=== PATIENT | male | born 1975 | race African-American/Black ===

== ENCOUNTER 2023-10-21 19:19 | Emergency (ER) | payer OTHER, SELFPAY ==
[2023-10-21 19:25] VITALS: BP 158/108; PULSE 98; TEMP 36.7; O2SAT 97; BMI 21.6
--- NOTE | 2023-10-21 19:41 | ED.ALCOHOL1 ---
HPI - Alcohol General Chief Complaint: Alcohol Stated Complaint: Clearance for [facility] Time Seen by Provider: 10/21/23 19:32 Source: patient Mode of arrival: Wheelchair Limitations: other Limitations comment: ETOH on board History of Present Illness HPI narrative: This 48-year-old male was brought to the emergency department from [facility] for evaluation of alcohol intoxication. He presented today for alcohol detox but prior to going inside to do his intake he drank an excessive amount of vodka. According to the center, he needs IV fluids and medical clearance. The patient is awake alert, oriented to person and place. He denies that he is suicidal. He states he was just drinking because he knows that this is the last time he is going to be able to drink. He denies any chest pain or shortness of breath. He denies any recent injury or falls. He states he just wants to sleep. MD complaint: Reports alcohol intoxication Related Data Home Medications ?Medication ?Instructions ?Recorded ?Confirmed No Known Home Medications 10/21/23 10/21/23 Allergies Allergy/AdvReac Type Severity Reaction Status Date / Time No Known Drug Allergies Allergy Verified 10/21/23 19:24 Review of Systems ROS Status of ROS 10 or more systems reviewed and unremarkable except as noted in history and below Exam Narrative Exam Narrative: Nurses note and vital signs reviewed and patient is not hypoxic.Blood pressure is elevated 150/108 General: Nontoxic, intoxicated -[place]ian male, no respiratory distress, no active vomiting Skin: Warm, dry, no pallor noted. There is no rash noted. Head: Normocephalic, atraumatic Eye: Normal conjunctiva, no drainage, EOMI. PERRL. No scleral icterus. Ears, Nose, Mouth, and Throat: oral mucosa is moist. Nares patent. Cardiovascular: Regular Rate and Rhythm S1S2, no murmurs, rubs or gallops, pulses are brisk and equal bilaterally Respiratory: Patient is in no distress, no accessory muscle use, lungs are clear to auscultation, no wheezing, rales or rhonchi Back: non-tender, no CVA tenderness bilaterally to percussion. GI: Normal bowel sounds, no tenderness to palpation, no masses appreciated. No rebound, guarding, or rigidity noted. Musculoskeletal: The patient has no sign of injury, moving all extremities and ambulatory to room 1 Neurological: A&O, intoxicated, no focal deficits Psychiatric: Cooperative Constitutional Vital Signs, click to edit/add: Last Vital Signs Temp 98.1 F 10/21/23 19:25 Pulse 85 10/22/23 01:23 Resp 16 10/21/23 22:53 BP 148/101 H 10/22/23 01:23 Pulse Ox 100 10/22/23 01:23 O2 Del Method Room Air 10/21/23 19:25 Course Vital Signs Vital signs: Vital Signs Temperature 98.1 F 10/21/23 19:25 Pulse Rate 98 H 10/21/23 19:25 Respiratory Rate 14 10/21/23 19:25 Blood Pressure 158/108 H 10/21/23 19:25 Pulse Oximetry 97 10/21/23 19:25 Oxygen Delivery Method Room Air 10/21/23 19:25 Temperature 98.1 F 10/21/23 19:25 Pulse Rate 85 10/22/23 01:23 Respiratory Rate 16 10/21/23 22:53 Blood Pressure 148/101 H 10/22/23 01:23 Pulse Oximetry 100 10/22/23 01:23 Oxygen Delivery Method Room Air 10/21/23 19:25 MDM - Alcohol MDM Narrative Medical decision making narrative: This 48-year-old male was sent to the emergency department from [facility] after he showed up today for his intake and was found to be intoxicated. He admits that he was drinking prior to going into the rehab facility. Upon arrival he was awake, alert, mildly slurred speech but otherwise neurologically intact. An IV was placed and he was medicated with IV fluids and given food and drinks including Gatorade. Routine labs were ordered. He does have elevated AT 496 upon arrival. The remainder of his labs are normal. He has slept and awakened and been ambulatory in the emergency department. There are no sign of acute alcohol withdrawal. At this time I feel it is safe for him to be returned to the rehab facility. He is in agreement with this plan. Lab Data Labs: Lab Results 10/21/23 10/21/23 Range/Units 19:42 19:46 WBC 3.2 L (4.0-11.0) 10^3/uL RBC 4.80 (4.70-6.10) 10^6/uL Hgb 10.4 L (14.0-18.0) g/dL Hct 32.4 L (42.0-54.0) % MCV 67.5 L (80.0-94.0) fL MCH 21.7 L (25.9-34.0) pg MCHC 32.1 (29.9-35.2) g/dL RDW 20.6 H (11.0-15.0) % Plt Count 132 L (150-450) 10^3/uL MPV 0.0 L (9.5-13.5) fL Neut % (Auto) 55.2 (43.0-75.0) % Lymph % (Auto) 32.9 (20.5-60.0) % [place] % (Auto) 10.1 (1.7-12.0) % Eos % (Auto) 0.9 (0.9-7.0) % Baso % (Auto) 0.9 (0.2-2.0) % Neut # (Auto) 1.7 (1.4-6.5) 10^3/uL Lymph # (Auto) 1.0 L (1.2-3.8) 10^3/uL [place] # (Auto) 0.3 (0.3-0.8) 10^3/uL Eos # (Auto) 0.0 (0.0-0.7) 10^3/uL Baso # (Auto) 0.0 (0.0-0.1) 10^3/uL Abs Immat Gran (auto) 0.00 (0.00-0.03) 10^3/uL Imm/Tot Granulo (auto) 0.0 (0.0-0.5) % PT 10.1 (9.0-11.6) sec INR 0.95 Sodium 140 (136-145) mmol/L Potassium 4.2 (3.5-5.1) mmol/L Chloride 101 (98-107) mmol/L Carbon Dioxide 29.1 (21.0-32.0) mmol/L Anion Gap 14.1 BUN 11.0 (7.0-18.0) mg/dL Creatinine 1.11 (0.70-1.30) mg/dL Est GFR ( Amer) >60 (>=60) Est GFR (Non-Af Amer) >60 (>=60) BUN/Creatinine Ratio 9.9 Glucose 93 (74-106) mg/dL Calcium 8.6 (8.5-10.1) mg/dL Phosphorus 4.0 (2.6-4.7) mg/dL Magnesium 2.2 (1.8-2.4) mg/dL Total Bilirubin 0.8 (0.2-1.0) mg/dL AST 151 H (15-37) U/L ALT 59 (16-63) U/L Alkaline Phosphatase 65 (46-116) U/L Total Protein 8.1 (6.4-8.2) g/dL Albumin 3.7 (3.4-5.0) g/dL Globulin 4.4 g/dL Albumin/Globulin Ratio 0.8 Lipase 65.0 (16.0-77.0) U/L Ethanol Quant 496 mg/dL POC Glucose 105 (74-106) mg/dL Discharge Plan Discharge Stand Alone Forms: Portal Instructions Chief Complaint: Alcohol Clinical Impression: Alcoholic intoxication Patient Disposition: Home, Self-Care Time of Disposition Decision: 01:36 Condition: Good Prescriptions / Home Meds: No Action No Known Home Medications Print Language: Slovak Instructions: Alcohol Intoxication (ED), Abuse of Alcohol (ED) Referrals: Physician,Non-Staff, MD [Primary Care Provider] - 1 week
[2023-10-21 19:45] LABS: Glucometer 105 mg/dL (74-106)
[2023-10-21] MEDS: 0.9 % SODIUM CHLORIDE 1,000 ML 1000 ML IV (19:46)
[2023-10-21 19:55] LABS: Basophils Percent Auto 0.9 % (0.2-2.0); Eosinophils Percent Auto 0.9 % (0.9-7.0); Hematocrit 32.4 % (42.0-54.0); Hemoglobin 10.4 g/dL (14.0-18.0); Lymphocytes Percent Auto 32.9 % (20.5-60.0); Mean Corpuscular HGB Conc 32.1 g/dL (29.9-35.2); Mean Corpuscular Hemoglobin 21.7 pg (25.9-34.0); Mean Corpuscular Volume 67.5 fL (80.0-94.0); Monocytes Absolute Auto 0.3 10^3/uL (0.3-0.8); Monocytes Percent Auto 10.1 % (1.7-12.0); Neutrophils Absolute Auto 1.7 10^3/uL (1.4-6.5); Neutrophils Percent Auto 55.2 % (43.0-75.0); Platelet Count 132 10^3/uL (150-450); Red Cell Distribution Width 20.6 % (11.0-15.0); White Blood Count 3.2 10^3/uL (4.0-11.0)
[2023-10-21 20:08] LABS: INR 0.95; Prothrombin Time 10.1 sec (9.0-11.6)
[2023-10-21 20:10] LABS: Anion Gap 14.1
[2023-10-21 20:12] LABS: Alanine Aminotransferase 59 U/L (16-63); Albumin Globulin Ratio 0.8; Albumin Level 3.7 g/dL (3.4-5.0); Alkaline Phosphatase 65 U/L (46-116); Aspartate Amino Transferase 151 U/L (15-37); BUN Creatinine Ratio 9.9; Bilirubin Total 0.8 mg/dL (0.2-1.0); Calcium 8.6 mg/dL (8.5-10.1); Carbon Dioxide 29.1 mmol/L (21.0-32.0); Chloride 101 mmol/L (98-107); Estimated GFR (African America >60 (>=60); Estimated GFR (Non-African Ame >60 (>=60); Ethanol 496 mg/dL; Globulin 4.4 g/dL; Glucose 93 mg/dL (74-106); Magnesium 2.2 mg/dL (1.8-2.4); Potassium 4.2 mmol/L (3.5-5.1); Sodium 140 mmol/L (136-145); Total Protein 8.1 g/dL (6.4-8.2)
[2023-10-21 22:53] VITALS: BP 158/90; PULSE 90; O2SAT 100
[2023-10-22 01:23] VITALS: BP 148/101; PULSE 85; O2SAT 100
[2023-10-22 01:35] LABS: Glucometer 83 mg/dL (74-106)
[2023-10-22 03:34] VITALS: BP 145/98; PULSE 87; O2SAT 97
== END 2023-10-22 03:34 | disposition home or self-care (01) ==
PROVIDERS: Emergency Provider Emergency Medicine
DX: F10.129 Alcohol abuse with intoxication, unspecified (principal); Y90.8 Blood alcohol level of 240 mg/100 ml or more
CPT/HCPCS: 36415; 80053; 80320; 83690; 83735; 84100; 85025; 85610; 99284